=== PATIENT | female | born 1985 | race African-American/Black ===

== ENCOUNTER 2021-09-15 13:58 | Emergency (ER) | payer BC, SELFPAY ==
--- NOTE | ~2021-09-15 | XR_ITS ---
EXAMINATION: XR chest 2V DATE: 09/15/2021 14:27 INDICATION: Seizure TECHNIQUE: frontal and lateral views of the chest were obtained. COMPARISON: None FINDINGS: The lungs are clear with no focal airspace opacities, pulmonary edema, pleural effusion or pneumothor ax. The cardiomediastinal silhouette is normal. Cholecystectomy clips in right upper quadrant. IMPRESSION: 1. No acute cardiopulmonary disease. Reviewed, dictated and finalized at location A. UNICATIONS DESIGNER
[2021-09-15 14:01] VITALS: BP 116/60; PULSE 78; RESP 14; O2SAT 100
[2021-09-15 14:03] LABS: Glucose Point of Care 80 mg/dl (65-105)
--- NOTE | 2021-09-15 14:03 | ECG_ITS ---
Measurements Intervals [place] Rate: 77 P: 52 NE: 182 QRS: 29 QRSD: 90 T: 54 QT: 361 QTc: 410 Interpretive Statements SINUS RHYTHM BASELINE ARTIFACT- I, III, AVR, AVL, V1 NORMAL ECG Electronically Signed On 09-15-2021 17:54:24 FORM SETTER HELPER by Keegan Roberts D.O.
[2021-09-15 14:58] LABS: Basophils Percent Auto 0.2 % (0.2-1.2); Eosinophils Absolute Auto 0.1 K/mm3 (0-0.3); Eosinophils Percent Auto 1.1 % (0-4.4); Hematocrit 33.7 % (37.0-47.0); Hemoglobin 10.3 g/dL (12.0-15.0); Immature Granulocyte Absolute 0.02 K/mm3 (0.00-0.031); Immature Granulocyte Percent A 0.3 % (0-0.5); Lymphocytes Absolute Auto 2.03 K/mm3 (0.9-3.2); Lymphocytes Percent Auto 31.7 % (18.3-44.2); Mean Corpuscular HGB Conc 30.6 g/dl (32-36); Mean Corpuscular Hemoglobin 25.5 pg (26-34); Mean Corpuscular Volume 83.4 fl (80-100); Mean Platelet Volume 12.1 fl (7.4-10.4); Monocytes Absolute Auto 0.5 K/mm3 (0.1-0.6); Monocytes Percent Auto 7.2 % (2.6-8.5); Neutrophils Absolute Auto 3.8 K/mm3 (1.3-6.7); Neutrophils Percent Auto 59.5 % (45.5-73.1); Platelet Count Result 225 k/mm3 (150-375); Red Blood Count 4.04 M/mm3 (4.2-5.4); Red Cell Distribution Width 17.4 % (11.5-14.5); White Blood Count 6.4 K/mm3 (4.5-10.0)
[2021-09-15 15:14] LABS: Ethanol < 10 mg/dL (<10)
[2021-09-15 15:15] LABS: Alanine Aminotransferase 20 U/L (4-35); Albumin Level 4.6 g/dL (3.5-5.1); Alkaline Phosphatase 54 U/L (38-126); Anion Gap 11 mmol/L (8-16); Aspartate Amino Transferase 33 U/L (14-36); Blood Urea Nitrogen 30 mg/dL (7-17); Calcium 9.2 mg/dL (8.4-10.2); Carbon Dioxide 23 mmol/L (22-30); Chloride 106 mmol/L (98-107); Estimated Glomerular Filt Rate > 60; Glucose 77 mg/dL (65-110); Potassium 3.6 mmol/L (3.4-5.0); Sodium 140 mmol/L (137-145)
[2021-09-15 15:16] LABS: Add Urine Microscopic? NO; Appearance Urine Clear (Clear); Bilirubin Urine Negative (Negative); Blood Urine Negative (Negative); Color Urine Straw (Yellow); Glucose Urine UA Negative (Negative); Ketones Urine Negative (Negative); Leukocyte Esterase Ur Negative LEU/UL (Negative); Nitrate Urine Negative (Negative); Protein Urine Negative (Negative); Specific Grav Ur 1.005 (1.001-1.035); Urobilinogen Urine Negative mg/dL (<2.0)
[2021-09-15 15:44] LABS: Amphetamine Screen Urine Negative (Negative); Barbiturate Screen Urine Negative (Negative); Benzodiazepines Screen Urine Negative (Negative); Cannabinoid Screen Urine Negative (Negative); Cocaine Screen Urine Negative (Negative); Methadone Screen Urine Negative (Negative); Opiate Screen Urine Negative (Negative); Phencyclidine Screen Urine Negative (Negative)
--- NOTE | 2021-09-15 16:09 | ED.GENADULT ---
HPI - General Adult General Chief complaint: Recheck/Abnormal Lab/Rx Stated complaint: low blood sugar Time Seen by Provider: 09/15/21 14:00 History of Present Illness HPI narrative: Patient is a 36-year-old female who presents ER with altered mental status. She was found facedown in the bathroom for work. Apparently she been that way for over 20 minutes according to security footage. Patient has history of seizure disorder but has not been on medication for years due to not having seizures and doing well. Patient was also found to be hypoglycemic. EMS had a Accu-Chek of 31, then 70, then 41. Very little D10 had been instilled through an IV and patient's Accu-Chek here was 80. She is awake alert and oriented x3. She feels like this is similar to previous seizure she has had in the past. No tongue pain. No other concerns at this time. Reports no new stressors other than starting her new job which does require some physical labor. Related Data Allergies Allergy/AdvReac Type Severity Reaction Status Date / Time shellfish derived Allergy Unknown Verified 09/15/21 14:09 Review of Systems Review of Systems: All systems reviewed & are unremarkable except as noted in HPI and below Constitutional: Constitutional: Denies chills, Denies fever(s) and Denies weakness ENT: Denies sore throat Cardiovascular: Cardiovascular: Denies chest pain, Denies rapid heart rate and Denies radiating jaw, neck or arm pain Respiratory: Respiratory: Denies cough and Denies dyspnea Gastrointestinal: Gastrointestinal: Denies abdominal pain, Denies nausea and Denies vomiting Neurologic: Reports confusion, Denies headache(s), Denies focal weakness and Denies numbness Comments: Seizure PMFSH Past Medical History Medical History (Updated 09/15/21 @ 16:55 by Daniel Dunne MD) History of seizure disorder Surgical History Surgical History (Updated 09/15/21 @ 16:26 by Daniel Dunne MD) History of gastric bypass Social History Social History (Updated 09/15/21 @ 16:26 by Daniel Dunne MD) Smoking status: Never smoker Exam Narrative: GENERAL: Well-appearing, well-nourished, and in no acute distress. HEAD: Normocephalic, atraumatic. EYES: PERRL and EOMI. ENT: Mucous membranes moist. No injury to tongue. CHEST: Clear to auscultation. No respiratory distress. HEART: Regular rate and rhythm. Normal peripheral pulses. ABDOMEN: Soft, nontender, nondistended. EXTREMITIES: Normal range of motion. No edema. SKIN: Warm, dry, no rash. NEURO: Alert and oriented x3. Course Course Emergency Course: Discussed with neurology. They recommend patient obtain EEG either outpatient or inpatient. Patient should not be started on antiepileptics at this time and that she should be given the benefit of the doubt of being hypoglycemic. Patient would prefer to do an outpatient EEG and also thinks that her symptoms were related to low blood sugar due to the fact that she has had gastric bypass and is not able to eat as well while working. Vital Signs Vital signs: Vital Signs Pulse Rate 78 09/15/21 14:01 Respiratory Rate 14 09/15/21 14:01 Blood Pressure 116/60 09/15/21 14:01 Pulse Oximetry 100 09/15/21 14:01 Pulse Rate 78 09/15/21 14:01 Respiratory Rate 14 09/15/21 14:01 Blood Pressure 116/60 09/15/21 14:01 Pulse Oximetry 100 09/15/21 14:01 Medical Decision Making Vital Signs Vital Signs: Vital Signs Pulse Rate 78 09/15/21 14:01 Respiratory Rate 14 09/15/21 14:01 Blood Pressure 116/60 09/15/21 14:01 Pulse Oximetry 100 09/15/21 14:01 Pulse Rate 78 09/15/21 14:01 Respiratory Rate 14 09/15/21 14:01 Blood Pressure 116/60 09/15/21 14:01 Pulse Oximetry 100 09/15/21 14:01 Lab Data Result diagrams: 09/15/21 14:53 09/15/21 14:53 Labs: Lab Results 09/15/21 09/15/21 09/15/21 Range/Units 14:01 14:38 14:38 WBC (4.5-10.0) K/mm3 RBC (
== END 2021-09-15 17:37 | disposition home or self-care (01) ==
PROVIDERS: Emergency Provider Emergency Medicine
DX: E16.2 Hypoglycemia, unspecified (principal); G40.909 Epilepsy, unspecified, not intractable, without status epilepticus
CPT/HCPCS: 36415; 71046; 80053; 80307; 81003; 82948; 85025; 93005; 99283

== ENCOUNTER 2021-12-22 21:15 | Emergency (ER) | payer BC, SELFPAY ==
--- NOTE | ~2021-12-22 | CT_ITS ---
EXAMINATION: CT abdomen pelvis w con DATE: 12/22/2021 22:38 INDICATION: Vomiting TECHNIQUE: Computed tomography (CT) of the abdomen and pelvis was performed with 100 mL Omnipaque-350 intravenous contrast. Automated exposure control and iterative reconstruction technique were employe d. The dose-length product was 1203.03 mGy-cm. COMPARISON: None FINDINGS: Lower lungs are clear. There is inferior heart is normal. No pericardial or pleural effusion. Small s liding-type hiatal hernia and change of prior gastric bypass procedure. Cholecystectomy clips the gal lbladder fossa. Liver, pancreas, spleen, bilateral adrenal glands and kidneys are normal. There are c ouple dilated loops of small bowel in the left abdomen which appear to be related to anastomotic sutu re lines. No more extensive dilated bowel or discrete transition point to suggest obstruction. Large amount of stool in the proximal colon. Anteverted uterus partially decompressed bladder are normal. T ampon within the vaginal vault. No free intraperitoneal gas or fluid. Partially lumbarized S1 segment . Mild degenerative skeletal changes in the spine and bilateral hip and sacroiliac joints. IMPRESSION: 1. Dilation of a couple loops of bowel in the left abdomen which appear to be associated with anastom oses related to a gastric bypass procedure. No more extensive bowel dilation or discrete transition p oint to suggest obstruction. 2. Large amount of stool in the proximal colon. Correlate clinically for constipation. Reviewed, dictated and finalized at location A. CINE AIDE IMPRESSION: 1. Dilation of a couple loops of bowel in the left abdomen which appear to be a ssociated with anastomoses related to a gastric bypass procedure. No more exten sive bowel dilation or discrete transition point to suggest obstruction. 2. Large amount of stool in the proximal colon. Correlate clinically for consti pation.
[2021-12-22 21:26] VITALS: BP 116/68; PULSE 68; RESP 18; TEMP 36.2; O2SAT 99
[2021-12-22 21:45] VITALS: BP 119/67; PULSE 67; RESP 20; O2SAT 99
[2021-12-22] MEDS: ONDANSETRON INJ 4 MG/2 ML VIAL IV PUSH (21:58)
[2021-12-22] MEDS: SODIUM CHLORIDE 0.9% IV 1,000 ML 999 ML IV CONT (21:58)
[2021-12-22 22:00] LABS: Basophils Percent Auto 0.1 % (0.2-1.2); Eosinophils Absolute Auto 0.1 K/mm3 (0-0.3); Eosinophils Percent Auto 1.7 % (0-4.4); Hematocrit 34.4 % (37.0-47.0); Hemoglobin 10.6 g/dL (12.0-15.0); Immature Granulocyte Absolute 0.02 K/mm3 (0.00-0.031); Immature Granulocyte Percent A 0.3 % (0-0.5); Lymphocytes Absolute Auto 1.48 K/mm3 (0.9-3.2); Lymphocytes Percent Auto 19.8 % (18.3-44.2); Mean Corpuscular HGB Conc 30.8 g/dl (32-36); Mean Corpuscular Hemoglobin 27.1 pg (26-34); Mean Platelet Volume 12.7 fl (7.4-10.4); Monocytes Absolute Auto 0.6 K/mm3 (0.1-0.6); Monocytes Percent Auto 7.4 % (2.6-8.5); Neutrophils Absolute Auto 5.3 K/mm3 (1.3-6.7); Neutrophils Percent Auto 70.7 % (45.5-73.1); Platelet Count Result 218 k/mm3 (150-375); Red Blood Count 3.91 M/mm3 (4.2-5.4); Red Cell Distribution Width 16.2 % (11.5-14.5); White Blood Count 7.5 K/mm3 (4.5-10.0)
[2021-12-22 22:10] LABS: Alanine Aminotransferase 20 U/L (4-35); Albumin Level 4.7 g/dL (3.5-5.1); Alkaline Phosphatase 61 U/L (38-126); Anion Gap 9 mmol/L (8-16); Aspartate Amino Transferase 34 U/L (14-36); Bilirubin,Total 1.4 mg/dL (0.2-1.3); Blood Urea Nitrogen 15 mg/dL (7-17); Calcium 8.8 mg/dL (8.4-10.2); Carbon Dioxide 22 mmol/L (22-30); Chloride 112 mmol/L (98-107); Estimated CRCL calculation 128 ml/min; Estimated Glomerular Filt Rate > 60; Glucose 92 mg/dL (65-110); Lipase 204 U/L (23-300); Potassium 3.7 mmol/L (3.4-5.0); Sodium 143 mmol/L (137-145)
[2021-12-22 22:12] LABS: Add Urine Microscopic? YES; Appearance Urine Clear (Clear); Bilirubin Urine 1+ (Negative); Blood Urine Negative (Negative); Color Urine Amber (Yellow); Glucose Urine UA Negative (Negative); Ketones Urine Trace mg/dL (Negative); Leukocyte Esterase Ur Negative LEU/UL (Negative); Mucus Urine Rare /lpf; Nitrate Urine Negative (Negative); Protein Urine 1+ mg/dL (Negative); Squamous Epithelial Cell Urine Few /hpf (Few); Urobilinogen Urine Negative mg/dL (<2.0); WBC Urine 0-3 /hpf
[2021-12-22 22:13] LABS: Specific Grav Ur 1.045 (1.001-1.035)
--- NOTE | 2021-12-22 22:17 | ED.GENADULT ---
HPI - General Adult General Chief complaint: Abdominal Pain Stated complaint: abdominal pain Time Seen by Provider: 12/22/21 21:41 Source: patient Mode of arrival: ambulatory Limitations: no limitations History of Present Illness HPI narrative: 36-year-old female presents today with complaints of abdominal pain, nausea, and vomiting that started today abruptly. Patient with history of gastric bypass and history of bowel obstruction. Patient states this pain feels similar to when she had her last bowel obstruction. Patient denies diarrhea, will call, who removed, chest pain, or shortness of breath. Related Data Home Medications Medication Instructions Recorded Confirmed levothyroxine [Euthyrox] 100 mcg PO DAILY 12/22/21 Allergies Allergy/AdvReac Type Severity Reaction Status Date / Time ondansetron [From Zofran] Allergy Hives Verified 12/22/21 22:49 shellfish derived Allergy Unknown Verified 12/22/21 21:50 Review of Systems Review of Systems: CONSTITUTIONAL: Denies fever, chills, or sweats. EYES: Denies visual changes, redness, or discharge. CARDIOVASCULAR: Denies chest pain, palpitations, or edema. RESPIRATORY: Denies cough or dyspnea. GASTROINTESTINAL: Positive for abdominal pain, nausea, and vomiting. Denies r diarrhea. GENITOURINARY: Denies dysuria or hematuria. SKIN: Denies rash or itching. MUSCULOSKELETAL: Denies back pain, joint pain, or myalgia. NEUROLOGIC: Denies headache, numbness, dizziness, or weakness. PSYCHIATRIC: Denies anxiety or depression. PMFSH Past Medical History Medical History History of seizure disorder Surgical History Surgical History History of gastric bypass Social History Social History Smoking status: Never smoker Exam Narrative: GENERAL: Well-appearing, well-nourished, and in no acute distress. HEAD: Normocephalic, atraumatic. EYES: PERRLA and EOMI. ENT: Nares clear, no rhinorrhea or epistaxis. Mucous membranes moist. Oropharynx without tonsillar hypertrophy exudate or other lesions. Bilateral TMs pearly ashraf nonbulging NECK: Supple. No adenopathy or masses. No carotid bruits or JVD CHEST: Clear to auscultation. No respiratory distress. No wheezes rales or rhonchi HEART: Regular rate and rhythm. No murmur heard. Normal peripheral pulses. ABDOMEN: Tender to epigastric and umbilical region, guarding to epigastric and umbilical region, nondistended, hyperactive bowel sounds. EXTREMITIES: Normal range of motion. No edema. SKIN: Warm, dry, no rash. NEURO: No focal deficits. Alert and oriented x3. PSYCH: Normal mood and affect. Course Reevaluation(s) Reevaluation #1: Pateint able to tolerate Fluids and walk around without pain. Will be discharged home with plan to follow up with her surgeon. Date: 12/23/21 Time: 02:04 Consultations Consultation #1: Patient currently without pain or nausea. Patient very concerned about a bowel obsturction. Reinforced that the imaging does not show an obstruction. which patient was previously notified of. Patient has had a few sips of water without issue. Instructed to drink more and have her walk around then reevaluate. Date: 12/23/21 Time: 01:27 Vital Signs Vital signs: Vital Signs Temperature 36.2 C L 12/22/21 21:26 Pulse Rate 68 12/22/21 21:26 Respiratory Rate 18 12/22/21 21:26 Blood Pressure 116/68 12/22/21 21:26 Pulse Oximetry 99 12/22/21 21:26 Temperature 36.2 C L 12/22/21 21:26 Pulse Rate 80 12/22/21 23:22 Respiratory Rate 16 12/22/21 23:22 Blood Pressure 119/47 L 12/22/21 23:22 Pulse Oximetry 99 12/22/21 23:22 Medical Decision Making Differential Diagnosis Differential Diagnosis: SBO, gastro enteritis, constipation, Medical Records Medical records reviewed: Yes I reviewed the external patient's medical records. Ellyn
[2021-12-22 22:19] LABS: Platelet Estimate Adequate (Adequate)
[2021-12-22 22:20] LABS: Anisocytosis 2+ (NORMAL); Hypochromasia 1+ (NORMAL)
[2021-12-22] MEDS: fentaNYL CITRATE INJ (*CRX) 100 MCG/2 ML VIAL 50 MCG IV PUSH (22:33)
[2021-12-22] MEDS: methylPREDNISolone SOD SUCC 125 MG VIAL IV PUSH (22:42)
[2021-12-22] MEDS: diphenhydrAMINE HCl INJ 50 MG/ML VIAL 25 MG IV PUSH (22:42)
[2021-12-22] MEDS: FAMOTIDINE 20 MG/2 ML VIAL IV PUSH (22:48)
[2021-12-22 23:22] VITALS: BP 119/47; PULSE 80; RESP 16; O2SAT 99
[2021-12-23 01:00] VITALS: BP 110/61; PULSE 80; RESP 18; O2SAT 97
[2021-12-23 02:45] VITALS: BP 108/65; PULSE 80; RESP 16; TEMP 36.6; O2SAT 97
== END 2021-12-23 02:46 | disposition home or self-care (01) ==
PROVIDERS: Emergency Medicine; Emergency Provider Nurse Practitioner Family
DX: K59.00 Constipation, unspecified (principal); R10.9 Unspecified abdominal pain; G40.909 Epilepsy, unspecified, not intractable, without status epilepticus; Z98.84 Bariatric surgery status
CPT/HCPCS: 36415; 74177; 80053; 81001; 81025; 83690; 85025; 96361; 96374; 96375; 99284; J1200; J2405; J2930; J3010; J7030; Q9967